=== PATIENT | female | born 1935 | race Caucasian/White ===

== ENCOUNTER 2017-02-08 11:05 | Emergency (ER) | payer OTHER, MEDICARE ==
[~2017-02-08] VITALS: Ht 154.9 cm; Wt 59.0 kg
[2017-02-08 11:09] VITALS: BP_SYST 151
--- NOTE | 2017-02-08 11:09 | NUR ---
Patient to ER bed 3 to gown for evaluation. Side rails up. Report given to [facility].
--- NOTE | 2017-02-08 11:11 | NUR ---
Pt brought in by son in stable condition. Pt was transported by wheelchair to bed 3. Pt c/o left groin pain 10/ s/p slip and fall while exiting her restroom at 0430 am. Pt stated that she slipped and fell onto her left side onto hardwood floor. Pt denies hitting her head and -KO. No obvious deformity noted to lower extremities. Pedal pulses are present and equal bilaterally. No obvious bruising noted to left hip or groin. No limited ROM noted. -sob -chest pain. Pt's son is at bedside. No acute distress noted at this time, will continue to monitor.
--- NOTE | 2017-02-08 11:14 | NUR ---
ER at bedside examining patient.
[2017-02-08 12:09] VITALS: BP_SYST 130
--- NOTE | 2017-02-08 12:11 | NUR ---
Patient given written and verbal discharge instructions and verbalizes understanding. ER MD discussed with patient the results and treatment provided. Patient in stable condition. ID arm band removed. No Rx given. Patient educated on pain management and to follow up with PMD. Pain Scale 3/10 states will medicate when she gets home. Opportunity for questions provided and answered.
== END 2017-02-08 12:09 | disposition home or self-care (01) ==
LOC: SED 11:05
DX: S70.02XA Contusion of left hip, initial encounter (principal); W01.0XXA Fall on same level from slipping, tripping and stumbling without subsequent striking against object, initial encounter; Y93.89 Activity, other specified; Y92.89 Other specified places as the place of occurrence of the external cause; Y99.8 Other external cause status
CPT/HCPCS: 72170-TC; 73502; 99284